=== PATIENT | male | born 1955 | race Caucasian/White ===

== ENCOUNTER 2019-01-29 19:45 | Emergency (ER) | payer OTHER ==
[~2019-01-29] VITALS: Ht 180.3 cm; Wt 68.0 kg
[2019-01-29 20:01] VITALS: BP 131/97; Ht 180.3 cm; Wt 68.0 kg
== END 2019-01-29 20:32 | disposition other institution (70) ==
LOC: ED 19:45
DX: Z02.89 Encounter for other administrative examinations (principal)